=== PATIENT | female | born 1965 | race Caucasian/White ===

== ENCOUNTER 2019-04-17 10:36 | Day surgery (SDC) | payer MEDICAID ==
[~2019-04-17] VITALS: Ht 162.6 cm; Wt 74.8 kg
[2019-04-17] MEDS ORDERED: LACTATED RINGERS 1,000 ML IV SCH (11:45)
[2019-04-17 11:47] LABS: BASOPHILS % 0.8 % (0.0-2.0); HEMATOCRIT. 36.2 % (36.0-48.0); HEMOGLOBIN. 12.5 g/dL (12.0-16.0); LYMPHOCYTES % 26.1 % (20.0-50.0); MEAN CORPUSCULAR HEMOGLOBIN 34.4 pg (28.0-32.0); MEAN CORPUSCULAR VOLUME 99.4 fL (81.0-99.0); MEAN PLATELET VOLUME 8.5 fl (7.4-10.4); MONOCYTES % 7.6 % (2.0-8.0); NEUTROPHILS % 64.5 % (40.0-76.0); PLATELET 208 x1000/uL (130-400); RED BLOOD CELL COUNT 3.64 mill/uL (4.2-5.4); RED CELL DISTRIBUTION WIDTH 13.8 % (11.6-14.6)
[2019-04-17 11:49] LABS: UCG SCREEN NEGATIVE
[2019-04-17 11:51] LABS: CHLORIDE 108 mEq/L (98-107)
[2019-04-17] MEDS ORDERED: BUPIVACAINE HCL/PF 0.5% (5MG/ML) 10ML ONE (14:53)
[2019-04-17] MEDS ORDERED: FERR-54 PO (14:53)
[2019-04-17] MEDS ORDERED: SKIN ADHESIVE 0.7 GM EA TOP ONE (14:53)
[2019-04-17] MEDS ORDERED: PROPOFOL 200MG/20ML VIAL IV ONE (15:10)
[2019-04-17] MEDS ORDERED: FENTANYL CITRATE/PF 50MCG/ML 2ML VIAL ONE (15:10)
[2019-04-17] MEDS ORDERED: MIDAZOLAM HCL 2 MG/2 ML VIAL ONE (15:10)
[2019-04-17] MEDS ORDERED: CEFAZOLIN SODIUM 1000MG/VIAL ONE (15:11)
[2019-04-17] MEDS ORDERED: SODIUM CHLORIDE 0.9% 10ML VIAL ONE (15:11)
[2019-04-17] MEDS ORDERED: VECURONIUM BROMIDE 10 MG/VIAL IV ONE (15:17)
[2019-04-17] MEDS ORDERED: GLYCOPYRROLATE 0.2 MG/ML 2ML VIAL ONE ×2 (15:37→18:02)
[2019-04-17] MEDS ORDERED: DIPHENHYDRAMINE 50MG/ML VIAL ONE (15:49)
[2019-04-17] MEDS ORDERED: DEXAMETHASONE 4MG/ML 1ML VIAL ONE (15:49)
[2019-04-17] MEDS ORDERED: ONDANSETRON HCL 4MG/2ML INJ ONE (15:49)
[2019-04-17] MEDS ORDERED: METOCLOPRAMIDE HCL 10MG/2ML VIAL ONE (15:49)
[2019-04-17] MEDS ORDERED: NEOSTIGMINE METHYLSULFATE 1MG/ML 10 ML VIAL ONE (18:01)
[2019-04-17] MEDS ORDERED: HYDROMORPHONE HCL/PF 2MG/ML CPJ IV PRN (19:30)
[2019-04-17] MEDS ORDERED: ONDANSETRON HCL 4MG/2ML INJ IV NR (19:30)
[2019-04-17 19:40] VITALS: BP 121/67
[2019-04-17] MEDS ORDERED: HYDROCODONE/ACETAMINOPHEN 10/325MG TABLET ONE (21:42)
[2019-04-17] MEDS ORDERED: HYDROCODONE/ACETAMINOPHEN 10/325MG TABLET PO NR (21:45)
== END 2019-04-17 22:00 | disposition home or self-care (01) ==
LOC: OR 10:36
PROVIDERS: ATTEND Obstetrics & Gynecology
DX: N83.01 Follicular cyst of right ovary (principal); N72 Inflammatory disease of cervix uteri; N80.0 Endometriosis of uterus; N92.0 Excessive and frequent menstruation with regular cycle; D64.9 Anemia, unspecified; N84.0 Polyp of corpus uteri; Z79.899 Other long term (current) drug therapy; Z98.891 History of uterine scar from previous surgery; Z98.890 Other specified postprocedural states
CPT/HCPCS: 36415; 58552; 80048; 81025; 85025; 86850; 86900; 86901; 88309; G0168; J0690; J1100; J1170; J1200; J2250; J2405; J2704; J2710; J2765; J3010; J3490